=== PATIENT | male | born 1955 | race Caucasian/White ===

== ENCOUNTER 2020-04-09 08:21 | Day surgery (SDC) | payer BC, OTHER ==
[2020-04-05 11:05] LABS: URINE BILIRUBIN NEGATIVE (Negative); URINE BLOOD NEGATIVE (Negative); URINE CLARITY CLEAR; URINE COLOR YELLOW; URINE GLUCOSE-RANDOM* NEGATIVE (Negative); URINE KETONES NEGATIVE (Negative); URINE LEUKOCYTES-REFLEX NEGATIVE (Negative); URINE NITRITE-REFLEX NEGATIVE (Negative); URINE PROTEIN (DIPSTICK) NEGATIVE (Negative); URINE SPECIFIC GRAVITY 1.015 (1.005-1.035); URINE UROBILINOGEN 0.2 E.U./dl (0.2-1.0)
[2020-04-05 11:08] LABS: HEMOGLOBIN 15.1 gm/dL (14.0-18.0); MCH 30.1 pg (26.0-34.0); MCHC 34.3 g/dL (28.0-37.0); MCV 87.7 fL (80.0-100.0); RBC 5.01 mil/uL (4.50-6.00); RDW 13.4 % (10.5-14.5); WBC 4.4 thou/uL (4.0-11.0)
[2020-04-05 11:17] LABS: ALBUMIN 3.8 g/dL (3.4-5.0); CALCIUM 8.7 mg/dL (8.5-10.1); CREATININE 0.9 mg/dL (0.7-1.3); POTASSIUM 4.5 mmol/L (3.5-5.1)
[2020-04-05 11:22] LABS: PROTIME 10.2 Seconds (9.3-11.4)
--- NOTE | 2020-04-06 07:58 | EKG ---
[facility] [place] [address] ELECTROCARDIOGRAM REPORT Name: OLLIEANA Pao [place] #: [place] [facility] [place] [id number] Admission: Attend Phys: Osmar Cornejo MD Discharge: Date of : 57 Report #: [id number] THIS REPORT FOR: cc: FAM - Family physician unknown FAM - Family physician unknown Rodrigo Lima MD ~ THIS REPORT FOR: //name// [facility] Test Date: 2020-04-05 Test Time: 11:02:00 Pat Name: ANA LEVIN Department: Room: Gender: Ton Cylinder Inspector: Martha TRAN : 1955 Requested By: Osmar Cornejo Order Number: [id number] MD: Rodrigo Lima Measurements Intervals Temple Rate: 63 P: 65 AR: 157 QRS: -17 QRSD: 97 T: 55 QT: 395 QTc: 405 Interpretive Statements Sinus rhythm Borderline left axis deviation No previous ECG available for comparison Electronically Signed On 04-06-2020 7:57:14 CDT by Rodrigo Lima [email or web address] <ELECTRONICALLY SIGNED> By: Rodrigo Lima MD 04/06/20 0757 01 01 Rodrigo Lima MD /THAD
[~2020-04-09] VITALS: Ht 182.9 cm; Wt 71.7 kg
[2020-04-09 09:00] VITALS: BP 166/87
[2020-04-09] MEDS ORDERED: ASPIR 8181 MG PO (15:07)
[2020-04-09] MEDS ORDERED: MS CONTIN15 MG PO (15:07)
[2020-04-09] MEDS ORDERED: PERCOCET PO (15:08)
[2020-04-09] MEDS ORDERED: ONDANSETRON4 MG/2 M1 PO (15:08)
[2020-04-09] MEDS ORDERED: KEFLEX500 M1 PO (15:09)
[2020-04-09 15:30] VITALS: BP 150/77
[2020-04-09 15:48] VITALS: BP 150/77
--- NOTE | 2020-04-09 16:06 | NUR ---
PATIENT ADMITTED FROM OR, RIGHT KNEE REPLACEMENT, ZHANNA DRESSING, KNEE HIGH SUE HOSE, SCD'S, AND POLAR PACK IN PLACE. PATIENT C/O PAIN AFTER PHYSICAL THERAPY/DAHLIA, AND PT/DAHLIA STATES OK FOR PATIENT TO DISCHARGE, DR DAS NOTIFIED BY DAHLIA/PT. DISCHARGE ORDER IN COMPUTER. LEFT IV REMOVED PRIOR TO DISCHARGE. REASSESSMENT DONE, NURSING NOTE DONE. THIS RN WENT OVER ALL DISCHARGE PAPERWORK AND SENT ALL PERSONAL BELONGINGS WITH THE PATIENT. WILL CALL FOR TRANSPORT TO HOME. PATIENT HAS PRECRIPTIONS AT HOME.
[2020-04-09 21:00] VITALS: BP 102/48
--- NOTE | 2020-04-12 12:09 | O ---
[facility] [place] [address] OPERATIVE REPORT Name: ANA LEVIN [place] #: [place] [facility] [place]#: [id number] Admission: 04/09/20 Attend Phys: Osmar Cornejo MD Discharge: 04/09/20 Date of : 57 Report #: [id number] THIS REPORT FOR: cc: YAZMIN - Family physician unknown FAM - Family physician unknown Osmar Cornejo MD ~ CC: YAZMIN unknown Osmar Cornejo DATE OF SERVICE: 04/09/2020 PREOPERATIVE DIAGNOSIS: Right knee osteoarthritis. POSTOPERATIVE DIAGNOSIS: Right knee osteoarthritis. PROCEDURE: Right total knee arthroplasty using Navio robotic assistant foreman. SURGEON: Osmar Cornejo MD. SURVEY SUPERVISOR: Stacy Aly PA-C. INDICATIONS FOR SURVEY SUPERVISOR: Throughout the case, extensive retraction and manipulation of the knee was required. This was afforded to me by my assistant foreman. ANESTHESIA: LMA with an adductor canal block. IMPLANTS: Das [employer] Nephew size 6 Journey II BCS Oxinium femur, size 6 tibia, size 11 polyethylene and size 38 patella. TOURNIQUET TIME: 55 minutes. ESTIMATED BLOOD LOSS: 25 mL. COMPLICATIONS: None. SPECIMENS: None. CONDITION UPON LEAVING THE OPERATING ROOM: Stable. INDICATIONS FOR PROCEDURE: The patient is a 64-year-old gentleman with severe right knee osteoarthritis. He had failed conservative measures for this and after discussion with him, he elected for right total knee arthroplasty. DESCRIPTION OF PROCEDURE: Risks, benefits, alternatives, and complications were discussed in detail with the patient including but not limited to risk of anesthesia, risk of damage to nerves, arteries, blood vessels, risk for [facility] [address] [place] [address] OPERATIVE REPORT Name: ANA LEVIN Room #: [place] [facility] [place].R.#: [id number] Admission: 04/09/20 Attend Phys: Osmar Cornejo MD Discharge: 04/09/20 Date of : 57 Report #: [id number] infection, bleeding, risk for continued knee pain and need for reoperation. Informed consent was obtained from the patient. Right knee was appropriately marked in the preoperative holding area. IV Ancef was given for preoperative antibiotics. He was brought to the operating room and placed in supine position on the operating room table. LMA anesthesia was induced without complication. Tourniquet was placed on the right thigh. Right lower extremity was prepped and draped in normal sterile fashion. Timeout was performed properly identifying the patient and procedure as well as the instrumentation and implants. All in the operating room were in agreement. Right lower extremity was exsanguinated, tourniquet was inflated. Tourniquet time was 55 minutes. Standard midline approach to the knee was made with a 10 blade through the skin. Dissection was taken down sharply to the fascia and deep flaps were developed medially and laterally. Fresh 10-blade was used to make a medial parapatellar arthrotomy and the knee was inspected. There was severe medial compartment osteoarthritis with moderate lateral patellofemoral osteoarthritis. ACL and PCL were removed sharply. Reference pins were placed in the femur and the tibia. The knee was then digitally mapped using the [employer] robotic system. Intraoperative plan was made. We sized the size 6 femur with a size 6 tibia and a size 10 spacer. After acceptance of the intraoperative plan, the distal femoral cut was made with a Navio judith. The distal femoral cutting block was pinned in place and distal femoral cuts were made. Attention was turned to the tibia. Remainder of the menisci removed with Bovie cautery. The tibial resection guide was pinned in place and the tibial resection was made. Flexion and extension gaps were then checked and found to have good balance in flexion and extension both medially and laterally with the 11 spacer. After this, tibia was sized and found to be a size 6. A size 6 tibial trial was placed, pinned and punched. A size 6 femoral trial was placed and box cut was made. This was then trialed with a size 11 polyethylene. Knee was taken through range of motion and found to have 1-2 mm of laxity throughout range of motion of the knee. This was verified both digitally as well as manually. 9 mm was then resected from the posterior surface of the patella and a size 38 patellar trial button was placed. Knee was taken through range of motion, found to be stable and found to have good patellar tracking. Trial components were removed. Bony ends were thoroughly irrigated with normal saline. A final size 6 tibia, size 6 Journey II BCS Oxinium femur and a size 38 patella were cemented in place using standard cementation techniques. While the cement cured, a periarticular injection consisting of morphine, ropivacaine, epinephrine and Toradol was placed around the knee joint capsule. After the cement cured, the tourniquet was deflated and hemostasis was obtained with Bovie cautery. A final 11 polyethylene was placed. A gram of vancomycin was placed deep in the joint. Fascia was closed with 0 Vicryl. Skin was closed with 2-0 Vicryl, 3-0 Monocryl. Dermabond and a ZHANNA [address] [address] OPERATIVE REPORT Name: ANA LEVIN [id number] Admission: 04/09/20 Attend Phys: Osmar Cornejo MD Discharge: 04/09/20 Date of : 57 Report #: [id number] dressing was applied. The patient tolerated this procedure well and went to recovery room under care of anesthesia postoperatively. <ELECTRONICALLY SIGNED> By: Osmar Cornejo MD 04/12/20 1209 1407 1428 Osmar Cornejo MD /nt
== END 2020-04-09 19:00 | disposition home or self-care (01) ==
LOC: OR 08:21 → TBA 08:24 → OR 08:59 → 4S 14:21 → OR 19:00
PROVIDERS: ATTEND Orthopaedic Surgery
DX: M17.11 Unilateral primary osteoarthritis, right knee (principal); M25.561 Pain in right knee; Z98.890 Other specified postprocedural states; Z79.899 Other long term (current) drug therapy; Z87.891 Personal history of nicotine dependence; Z11.59 Encounter for screening for other viral diseases
CPT/HCPCS: 50010; 50101; 50415; 50954; 51130; 51225; 51320; 52001; 52282; 53000; 53078; 54118; 55372; 56527; 56528; 57095; 57103; 57110; 57127; 57180; 62110; 62900; 64039; 70005